=== PATIENT | female | born 1970 | race Caucasian/White ===

== ENCOUNTER 2021-12-30 06:07 | Inpatient (IN) ==
[~2021-12-30 06:07] MED LIST: DEXAMETHASONE 4 MG/1 ML VIAL ONE; GLYCOPYRROLATE 0.4 MG/2 ML VIAL ONE; LIDOCAINE 2% 5 ML VIAL ONE; MIDAZOLAM 2 MG/2 ML VIAL ONE; ONDANSETRON 4 MG/2 ML VIAL ONE; ROCURONIUM 50 MG/5 ML VIAL IV ONE; SUCCINYLCHOLINE 200 MG/10 ML VIAL ONE; fentaNYL 100 MCG/2 ML VIAL ONE; propofoL 200 MG/20 ML VIAL IV ONE
[2021-12-30] MEDS ORDERED: SEVOFLURANE 1 UNIT/15 MINUTE INH ONE (06:21)
[2021-12-30] MEDS ORDERED: SODIUM CHLORIDE 0.9% 250 ML IV ONE (06:22)
[2021-12-30] MEDS ORDERED: PHENYLEPHRINE 10 MG/1 ML VIAL IV ONE (06:22)
[2021-12-30] MEDS ORDERED: TISSUE ADHESIVE 1 EACH APPLICATOR TOP ONE (06:22)
[2021-12-30] MEDS ORDERED: GABAPENTIN 400 MG CAPSULE PO ONE (06:24)
[2021-12-30] MEDS ORDERED: ACETAMINOPHEN 500 MG TABLET PO ONE (06:24)
[2021-12-30] MEDS ORDERED: DIAZEPAM 5 MG TABLET PO ONE (06:24)
[2021-12-30] MEDS ORDERED: ROPIVACAINE 0.5% 30 ML VIAL ONE (06:25)
[2021-12-30] MEDS ORDERED: LIDOCAINE 1% 5 ML VIAL ONE (06:25)
[2021-12-30] MEDS ORDERED: LACTATED RINGERS 1,000 ML IV SCH (06:30)
[2021-12-30 06:34] LABS: Basophils # 0.1 10*3/uL (0.0-0.2); Basophils % 0.9 % (0.0-0.8); Eosinophils # 0.5 10*3/uL (0.0-0.87); Eosinophils % 5.6 % (0.00-10.9); Hemoglobin 12.9 GM/DL (12.0-16.0); Immature Granulocytes % 0.2 %; Immature Granulocytes Absolute 0.02 #; Lymphocytes # 2.3 10*3/uL (1.4-4.0); Lymphocytes % 26.7 % (21.3-54.2); Mean Corpuscular HGB Conc 33.1 GM/DL (32-36); Mean Corpuscular Volume 88.6 FL (87-102); Mean Platelet Volume 9.2 FL (9.6-12.0); Monocytes # 0.8 10*3/uL (0.11-0.8); Monocytes % 9.4 % (1.7-12.7); Neutrophils % 57.2 % (38.7-73.9); Platelet Count 286 T/CUMM (130-400); Red Cell Distribution Width 14.8 % (9.3-17.3); White Blood Count 8.6 T/CUMM (4-12)
[2021-12-30] MEDS ORDERED: ePHEDrine 50 MG/ML VIAL ONE (07:28)
[2021-12-30] MEDS ORDERED: NEOSTIGMINE 10 MG/10 ML VIAL ONE (08:55)
[2021-12-30] MEDS ORDERED: GLYCOPYRROLATE 0.4 MG/2 ML VIAL ONE (08:55)
[2021-12-30] MEDS ORDERED: fentaNYL 100 MCG/2 ML VIAL ONE (09:26)
[2021-12-30] MEDS ORDERED: MINERAL OIL/PETROLATUM OPH OINT 3.5 GM TUBE ONE (09:28)
[2021-12-30] MEDS ORDERED: PROMETHAZINE 25 MG/1 ML VIAL IM PRN (09:30)
[2021-12-30] MEDS ORDERED: HYDROmorphone 1 MG/1 ML SYRINGE IV PRN ×2 (09:30→10:21)
[2021-12-30] MEDS ORDERED: ONDANSETRON 4 MG/2 ML VIAL IV PRN ×2 (09:30→10:21)
[2021-12-30 09:51] LABS: Basophils # 0.1 10*3/uL (0.0-0.2); Basophils % 0.6 % (0.0-0.8); Eosinophils # 0.3 10*3/uL (0.0-0.87); Hematocrit 36.5 VOL% (35.7-47.0); Immature Granulocytes % 0.4 %; Immature Granulocytes Absolute 0.06 #; Lymphocytes # 1.5 10*3/uL (1.4-4.0); Lymphocytes % 10.4 % (21.3-54.2); Mean Corpuscular HGB Conc 32.9 GM/DL (32-36); Mean Platelet Volume 9.9 FL (9.6-12.0); Monocytes # 0.5 10*3/uL (0.11-0.8); Monocytes % 3.4 % (1.7-12.7); Neutrophils % 83.2 % (38.7-73.9); Platelet Count 238 T/CUMM (130-400); Red Cell Distribution Width 14.8 % (9.3-17.3); White Blood Count 14.3 T/CUMM (4-12)
[2021-12-30 10:04] LABS: Calcium 8.4 MG/DL (8.5-10.1); Osmolality,Calculated 283.3 MOS/KG (273-304); Potassium 4.1 MMOL/L (3.5-5.1)
[2021-12-30] MEDS: LACTATED RINGERS 1,000 ML IV SCH ×2 (10:27→20:46)
[2021-12-30] MEDS ORDERED: KETOROLAC 30 MG/1 ML VIAL IV ONE (13:00)
[2021-12-30] MEDS: SUCRALFATE 1 GM TABLET PO SCH ×3 (13:01→20:44)
[2021-12-30] MEDS: atenoloL 25 MG TABLET PO SCH (13:01)
[2021-12-30] MEDS: KETOROLAC 15 MG/1 ML VIAL IV SCH ×2 (18:39→23:53)
[2021-12-31 05:25] LABS: Basophils % 0.5 % (0.0-0.8); Eosinophils # 0.2 10*3/uL (0.0-0.87); Eosinophils % 1.7 % (0.00-10.9); Hematocrit 32.9 VOL% (35.7-47.0); Hemoglobin 10.7 GM/DL (12.0-16.0); Immature Granulocytes % 0.2 %; Immature Granulocytes Absolute 0.02 #; Lymphocytes % 23.3 % (21.3-54.2); Mean Corpuscular HGB Conc 32.5 GM/DL (32-36); Mean Corpuscular Volume 88.7 FL (87-102); Mean Platelet Volume 9.9 FL (9.6-12.0); Monocytes # 0.8 10*3/uL (0.11-0.8); Monocytes % 9.4 % (1.7-12.7); Neutrophils % 64.9 % (38.7-73.9); Platelet Count 219 T/CUMM (130-400); Red Blood Count 3.71 MC/CUMM (3.8-5.5); White Blood Count 8.7 T/CUMM (4-12)
[2021-12-31 05:40] LABS: Calcium 8.6 MG/DL (8.5-10.1); Osmolality,Calculated 281.1 MOS/KG (273-304); Potassium 4.2 MMOL/L (3.5-5.1)
[2021-12-31] MEDS: KETOROLAC 15 MG/1 ML VIAL IV SCH ×2 (05:51→15:28)
[2021-12-31] MEDS: LACTATED RINGERS 1,000 ML IV SCH (05:52)
[2021-12-31] MEDS: atenoloL 25 MG TABLET PO SCH (08:40)
[2021-12-31] MEDS: SUCRALFATE 1 GM TABLET PO SCH ×3 (08:40→16:44)
[2021-12-31] MEDS ORDERED: SERTRALINE 100 MG TABLET PO SCH (09:00)
[2021-12-31] MEDS ORDERED: PANTOPRAZOLE 40 MG TABLET PO SCH (09:00)
[2021-12-31] MEDS ORDERED: ENOXAPARIN 40 MG/0.4 ML SYRINGE SUBCUT SCH (09:00)
[2021-12-31] MEDS ORDERED: PANTOPRAZOLE 40 MG VIAL IV SCH (09:00)
[2021-12-31] MEDS ORDERED: ACETAMINOPHEN/CODEINE 300-30 MG TABLET PO ONE (12:00)
[2021-12-31 15:30] VITALS: BP 117/79
== END 2021-12-31 18:26 | disposition home or self-care (01) | DRG 328 ==
LOC: N.OR 06:07 → N.SDSINP 06:07 → N.5E 11:06
PROVIDERS: ADMIT Surgery; ATTEND Surgery